=== PATIENT | female | born 1940 | race Caucasian/White ===

== ENCOUNTER 2023-11-18 15:44 | Inpatient (IN) | payer OTHER, MEDICAID ==
[~2023-11-18] VITALS: Ht 154.9 cm; Wt 49.9 kg
[2023-11-18 15:56] VITALS: BP_SYST 126; PULSE 48; RESP 15; TEMP 97.8; O2SAT 98
[2023-11-18 17:12] LABS: BASOPHILS # (AUTO) 0.2 K/uL (0.0-0.2); BASOPHILS % (AUTO) 1.9 % (0.0-2.0); HEMATOCRIT 37.9 % (36-48); HEMOGLOBIN 12.1 g/dL (12.0-16.0); LYMPHOCYTES # (AUTO) 0.3 K/uL (1.0-5.5); MEAN CORPUSCULAR HEMOGLOBIN 23 pg (27-31); MEAN CORPUSCULAR HGB CONC 32 % (32-36); MEAN CORPUSCULAR VOLUME 72 fL (79.0-98.0); MONOCYTES # (AUTO) 0.3 K/uL (0.0-1.0); MONOCYTES % (AUTO) 3.4 % (1.7-9.3); NEUTROPHILS # (AUTO) 8.4 K/uL (1.8-7.7); NEUTROPHILS % (AUTO) 91.7 % (40.0-70.0); PLATELET COUNT (AUTO) 203 K/uL (130-430); RED BLOOD CELL COUNT(AUTO) 5.26 MIL/uL (4.2-6.2); RED CELL DISTRIBUTION WIDTH 17.4 % (9.0-15.0); WHITE BLOOD COUNT (AUTO) 9.1 K/uL (4.8-10.8)
[2023-11-18 17:32] LABS: ALANINE AMINOTRANSFERASE 137 U/L (12-78); ALBUMIN 3.2 g/dL (3.4-4.8); ANION GAP 11 (5-15); ASPARTATE AMINOTRANSFERASE 67 U/L (10-37); BILIRUBIN,DIRECT 0.3 mg/dL (0.0-0.3); CALCIUM 9.1 mg/dL (8.4-11.0); CARBON DIOXIDE 25 mmol/L (23-29); CHLORIDE 102 mmol/L (98-107); CREATININE 1.23 mg/dL (0.55-1.30); GLUCOSE 118 mg/dL (74-106); PHOSPHORUS 7.8 mg/dL (2.7-4.5); SODIUM SERUM 138 mmol/L (136-145); THYROID STIMULATING HORMONE 1.83 uIu/mL (0.36-3.74); TOTAL BILIRUBIN 0.5 mg/dL (0.0-1.0); TOTAL PROTEIN, SERUM 6.7 g/dL (6.4-8.3); UREA NITROGEN, BLOOD 61 mg/dL (8-21)
[2023-11-18 17:34] LABS: POTASSIUM 6.3 mmol/L (3.5-5.1)
[2023-11-18] MEDS: NACL 0.9% 1,000 ML IV ONE (17:38)
[2023-11-18 17:50] LABS: ANISOCYTOSIS 2+; HYPOCHROMASIA 1+; OVALOCYTES FEW; POLYCHROMASIA 1+; TARGET CELLS FEW
[2023-11-18] MEDS: DEXTROSE 50% JECT 50 ML DISP.SYRIN IVP ONE (18:43)
[2023-11-18] MEDS: INSULIN REGULAR, HUMAN 10 UNITS/0.1 ML, 3 ML VIAL IVP ONE (18:46)
[2023-11-18 18:58] LABS: BILIRUBIN,URINE NEGATIVE (NEGATIVE); BLOOD, URINE NEGATIVE (NEGATIVE); CLARITY/URINE CLEAR (CLEAR); COLOR,URINE YELLOW (YELLOW); GLUCOSE,URINE NEGATIVE (NEGATIVE); KETONES,URINE NEGATIVE (NEGATIVE); LEUKOCYTE ESTERASE ,URINE NEGATIVE (NEGATIVE); NITRITE, URINE NEGATIVE (NEGATIVE); PH,URINE 5.5 (5.0-8.0); PROTEIN URINE 2+ (NEGATIVE)
[2023-11-18 19:15] LABS: BACTERIA,URINE RARE /HPF (None Seen); MUCUS,URINE 3+ /LPF (None Seen); RBC,URINE 0-3 /HPF (0-3); WBC,URINE 0-3 /HPF (0-3)
[2023-11-18] MEDS: NACL 0.9% 500 ML IV SCH (19:30)
[2023-11-18 20:36] LABS: BASOPHILS # (AUTO) 0.1 K/uL (0.0-0.2); EOSINOPHILS % (AUTO) 0.2 % (0.0-4.0); HEMATOCRIT 34.6 % (36-48); LYMPHOCYTES # (AUTO) 0.3 K/uL (1.0-5.5); MEAN CORPUSCULAR HEMOGLOBIN 23 pg (27-31); MEAN CORPUSCULAR HGB CONC 32 % (32-36); MEAN CORPUSCULAR VOLUME 72 fL (79.0-98.0); MONOCYTES # (AUTO) 0.3 K/uL (0.0-1.0); MONOCYTES % (AUTO) 3.2 % (1.7-9.3); NEUTROPHILS # (AUTO) 7.6 K/uL (1.8-7.7); NEUTROPHILS % (AUTO) 91.6 % (40.0-70.0); PLATELET COUNT (AUTO) 189 K/uL (130-430); RED BLOOD CELL COUNT(AUTO) 4.81 MIL/uL (4.2-6.2); RED CELL DISTRIBUTION WIDTH 17.6 % (9.0-15.0); WHITE BLOOD COUNT (AUTO) 8.3 K/uL (4.8-10.8)
[2023-11-18] MEDS: cefTRIAXone 1 GM in D5W 50 ML IV SCH (20:54)
[2023-11-18] MEDS ORDERED: cefTRIAXone 1 GM VIAL ONE (20:55)
[2023-11-18] MEDS: INSULIN REGULAR, HUMAN 100 UNITS/ML, 3 ML VIAL (humuLIN R) SUBCUT SCH (21:00)
[2023-11-18 21:05] LABS: ALANINE AMINOTRANSFERASE 130 U/L (12-78); ALBUMIN 2.9 g/dL (3.4-4.8); ANION GAP 11 (5-15); ASPARTATE AMINOTRANSFERASE 62 U/L (10-37); CALCIUM 8.7 mg/dL (8.4-11.0); CARBON DIOXIDE 22 mmol/L (23-29); CHLORIDE 106 mmol/L (98-107); CREATININE 1.13 mg/dL (0.55-1.30); GLUCOSE 88 mg/dL (74-106); POTASSIUM 4.8 mmol/L (3.5-5.1); SODIUM SERUM 139 mmol/L (136-145); TOTAL BILIRUBIN 0.5 mg/dL (0.0-1.0); TOTAL PROTEIN, SERUM 6.1 g/dL (6.4-8.3); UREA NITROGEN, BLOOD 63 mg/dL (8-21)
[2023-11-18] MEDS: SODIUM POLYSTYRENE SULFONATE 15 GM/60 ML UDBTL PO SCH (21:54)
[2023-11-18 22:03] LABS: BLOOD GAS PCO2 31.5 mmHg (35.0-45.0); BLOOD GAS PH 7.333 (7.350-7.450); BLOOD GAS PO2 77.7 mmHg (75.0-100.0)
[2023-11-18 22:04] LABS: BLOOD GAS HCO3 16.3 mmol/L (21.0-27.0)
[2023-11-18 22:05] LABS: ABG O2 SAT% ESTIMATE 94.9 % (94.0-100.0); ALLEN'S TEST POSITIVE (P); BLOOD GAS BASE EXCESS -8.4 mmol/L (-3.0-3.0)
[2023-11-18] MEDS ORDERED: DEXTROSE 50% JECT 50 ML DISP.SYRIN IVP PRN (23:15)
[2023-11-18] MEDS ORDERED: GLUCOSE (DEXTROSE) ORAL GEL -Adults PO PRN (23:15)
[2023-11-18] MEDS ORDERED: D5W 1,000 ML IV PRN (23:15)
[2023-11-18] MEDS ORDERED: CALCIUM GLUCONATE 1 GM/10 ML VIAL ONE (23:20)
[2023-11-18] MEDS ORDERED: AZITHROMYCIN 500 MG/VIAL (ZITHROMAX) IV ONE (23:28)
[2023-11-18] MEDS: D5/0.45 NS 1,000 ML IV SCH (23:33)
[2023-11-18] MEDS: AZITHROMYCIN 500 MG in NS 250 ML IV SCH (23:34)
[2023-11-18] MEDS: CALCIUM GLUCONATE 1 GM in NS 100 ML IV ONE (23:34)
[2023-11-18] MEDS: FUROSEMIDE 40 MG/4 ML VIAL IVP SCH (23:39)
[2023-11-19 00:38] VITALS: TEMP 98.1
[2023-11-19 04:03] VITALS: BP_SYST 132; PULSE 57; RESP 18; TEMP 98.3
[2023-11-19 06:07] VITALS: BP_SYST 136; PULSE 54; RESP 16; TEMP 98.4; O2SAT 95
[2023-11-19 08:00] VITALS: BP_SYST 125; PULSE 67; RESP 16; TEMP 97.3; O2SAT 99
[2023-11-19 08:15] VITALS: O2SAT 94
[2023-11-19] MEDS ORDERED: METO25TA6 PO (09:00)
[2023-11-19] MEDS ORDERED: MELA1TAB14 PO (09:00)
[2023-11-19] MEDS ORDERED: LEVO25TA7 PO (09:00)
[2023-11-19] MEDS ORDERED: LEVO2.5S8 PO (09:00)
[2023-11-19] MEDS ORDERED: ASA81 PO (09:00)
[2023-11-19] MEDS ORDERED: OMEP20CA15 PO (09:00)
[2023-11-19] MEDS ORDERED: ACET-2634 PO (09:00)
[2023-11-19] MEDS ORDERED: OSCD500 PO (09:00)
[2023-11-19] MEDS ORDERED: BISA10SU61 RC (09:00)
[2023-11-19] MEDS ORDERED: FURO-150 PO (09:00)
[2023-11-19] MEDS ORDERED: LEVE750T4 PO (09:00)
[2023-11-19] MEDS ORDERED: MULT-1117 PO (09:00)
[2023-11-19] MEDS ORDERED: MOM PO (09:00)
[2023-11-19] MEDS ORDERED: DOCU-144 PO (09:00)
[2023-11-19] MEDS ORDERED: METF-379 PO (09:00)
[2023-11-19] MEDS ORDERED: FER300L PO (09:00)
[2023-11-19] MEDS ORDERED: IBAN150T21 PO (09:00)
[2023-11-19] MEDS ORDERED: SIMV-343 PO (09:00)
[2023-11-19 09:14] LABS: HEMATOCRIT 36.5 % (36-48); HEMOGLOBIN 11.3 g/dL (12.0-16.0); MEAN CORPUSCULAR HEMOGLOBIN 23 pg (27-31); MEAN CORPUSCULAR HGB CONC 31 % (32-36); MEAN CORPUSCULAR VOLUME 74 fL (79.0-98.0); PLATELET COUNT (AUTO) 189 K/uL (130-430); RED BLOOD CELL COUNT(AUTO) 4.96 MIL/uL (4.2-6.2); RED CELL DISTRIBUTION WIDTH 17.4 % (9.0-15.0); WHITE BLOOD COUNT (AUTO) 6.8 K/uL (4.8-10.8)
[2023-11-19 10:07] LABS: BASOPHILS % (MANUAL) 0 % (0-2); EOSINOPHILS % (MANUAL) 0 % (0-7); LYMPHOCYTES % (MANUAL) 8 % (20-46); MONOCYTES % (MANUAL) 3 % (0-11); PLATELET ESTIMATE ADEQUATE (ADEQUATE)
[2023-11-19 10:08] LABS: ANISOCYTOSIS 1+; HYPOCHROMASIA 1+; OVALOCYTES FEW; POLYCHROMASIA 1+; TARGET CELLS FEW
[2023-11-19 12:15] LABS: ANION GAP 13 (5-15); CARBON DIOXIDE 21 mmol/L (23-29); CHLORIDE 105 mmol/L (98-107); GLUCOSE 90 mg/dL (74-106); POTASSIUM 4.2 mmol/L (3.5-5.1); SODIUM SERUM 139 mmol/L (136-145)
[2023-11-19 12:16] LABS: ALANINE AMINOTRANSFERASE 145 U/L (12-78); ASPARTATE AMINOTRANSFERASE 67 U/L (10-37); CALCIUM 8.4 mg/dL (8.4-11.0); CREATININE 0.97 mg/dL (0.55-1.30); TOTAL BILIRUBIN 0.4 mg/dL (0.0-1.0); UREA NITROGEN, BLOOD 56 mg/dL (8-21)
[2023-11-19 12:17] LABS: ALBUMIN 2.9 g/dL (3.4-4.8)
[2023-11-19 12:38] VITALS: BP_SYST 121; PULSE 63; RESP 18; TEMP 97.8; O2SAT 95
[2023-11-19] MEDS ORDERED: CALCIUM CHLORIDE 1 GM/10ML VIAL (13.6 mEq Ca++/VIAL) ONE (14:20)
[2023-11-19] MEDS ORDERED: SODIUM BICARBONATE 8.4% JECT 50 MEQ/50 ML SYRINGE ONE (14:20)
[2023-11-19] MEDS ORDERED: EPINEPHrine JECT 0.1 MG/ML SYR ONE (14:20)
[2023-11-19] MEDS ORDERED: levETIRAcetam 500 MG TABLET PO SCH (21:00)
[2023-11-19] MEDS ORDERED: DOCUSATE SODIUM 100 MG CAPSULE PO SCH (21:00)
[2023-11-19] MEDS ORDERED: SIMVASTATIN 20 MG TABLET PO SCH (21:00)
[2023-11-19 22:10] LABS: CHOLESTEROL 140 mg/dL (<200); HDL CHOLESTEROL 63 mg/dL (>55); TRIGLYCERIDES 55 mg/dL (30-150)
[2023-11-19 22:11] LABS: DIGOXIN 0.2 ng/mL (0.80-2.00)
[2023-11-20] MEDS ORDERED: LEVOTHYROXINE SODIUM 0.025 MG TABLET PO SCH (07:00)
[2023-11-20] MEDS ORDERED: PANTOPRAZOLE SODIUM 40 MG TAB PO SCH (09:00)
[2023-11-20] MEDS ORDERED: ASPIRIN 81 MG TAB.CHEW PO SCH (09:00)
[2023-11-20] MEDS ORDERED: OMEPRAZOLE Non-Formulary 20 MG CAPSULE.DR PO SCH (09:00)
== END 2023-11-19 13:10 | DRG 640 ==
LOC: SED 15:44 → STU 19:27
PROVIDERS: ADMIT Internal Medicine; ATTEND Internal Medicine
PROC: 0BH17EZ Insertion of Endotracheal Airway into Trachea, Via Natural or Artificial Opening (ICD-10-PCS; principal; 2023-11-19)
PROC: 5A12012 Performance of Cardiac Output, Single, Manual (ICD-10-PCS; 2023-11-19)
DX: E87.5 Hyperkalemia (principal); I50.31 Acute diastolic (congestive) heart failure; I69.951 Hemiplegia and hemiparesis following unspecified cerebrovascular disease affecting right dominant side; I11.0 Hypertensive heart disease with heart failure; E87.20 Acidosis, unspecified; I46.9 Cardiac arrest, cause unspecified; E78.5 Hyperlipidemia, unspecified; E11.9 Type 2 diabetes mellitus without complications; Z79.899 Other long term (current) drug therapy
CPT/HCPCS: 36415; 36600; 70450-TC; 71045; 80048; 80053; 80061; 80076; 80162; 81000; 81001; 81015; 82803; 82948; 83037; 83605; 83735; 83880; 84100; 84443; 84484; 85007; 85025; 85027; 87081; 92950; 93005; 96365; 99285; G0378; J0171; J0456; J0612; J0696; J1815; J1940; J7050; J7060